=== PATIENT | female | born 1955 | race American Indian/Alaskan Native ===

== ENCOUNTER 2018-02-28 08:11 | Emergency (ER) | payer OTHER ==
--- NOTE | 2018-02-28 10:06 | Cat Scan Report ---
CT scan of facial bones: History: Fall, abrasion, hematoma to face. Findings: The frontal maxillary ethmoid and sphenoid sinuses are well pneumatized and appears unremarkable. There is mucosal thickening noted in the right ethmoid sinuses. No fracture is seen. The bulb and retrobulbar area appears unremarkable. The zygomatic arches and facial bones appears normal. Impression: No evidence of acute fracture.
[2018-02-28] MEDS ORDERED: BOOSTRIX IM ONE (12:04)
--- NOTE | 2018-02-28 12:08 | Emergency Department Report ---
HPI - General Chief Complaint: Fall Time Seen by Provider: 02/28/18 11:24 - HPI HPI: 62-year-old female presents to the emergency department, driving herself and to be seen, after she had a mechanical fall this morning while trying to get into her car. She says that she has bad knees and thinks that she tripped on something. She did fall and hit her face and head but denies any loss of consciousness. She was able to get herself back up and into the car and drove herself in to be seen. She has a history of non-insulin- dependent diabetes and hypertension. She has swelling to the upper lip, and swelling to the lower mid forehead. She has some pain around the upper teeth but denies any obvious missing tooth or fracture. She did not take anything for her symptoms prior to presentation. ED Past Medical Hx - Past Medical History Previous Medical History?: Yes Hx Hypertension: Yes Hx Diabetes: Yes Hx of Cancer: Yes (breast CA) Additional medical history: hypothyroidism - Surgical History Past Surgical History?: Yes Additional Surgical History: removal of cyct from left breast. hysterectomy - Social History Smoking Status: Former Smoker Substance Use Type: Marijuana ED Review of Systems ROS: Stated complaint: FELL/NOSE/ MOUTH PAIN SWELLING Other details as noted in HPI Comment: All other systems reviewed and negative Constitutional: denies: chills, fever Eyes: denies: eye pain, eye discharge, vision change ENT: dental pain. denies: throat pain Respiratory: denies: cough, shortness of breath, wheezing Cardiovascular: denies: chest pain, palpitations Gastrointestinal: denies: abdominal pain, nausea, diarrhea Genitourinary: denies: urgency, dysuria, discharge Musculoskeletal: denies: back pain, joint swelling, arthralgia Skin: other (forehead and lip swelling, abrasions). denies: pruritus Neurological: headache. denies: numbness Physical Exam - Physical Exam Vital Signs: Vital Signs 02/28/18 08:30 Temperature 98.4 F Pulse Rate 61 Respiratory 20 Rate Blood Pressure 189/82 O2 Sat by Pulse 98 Oximetry Physical Exam: GENERAL: The patient is well-developed well-nourished. HENT: Normocephalic. Patient has moist mucous membranes. EYES: Extraocular motions are intact. Pupils equal reactive to light bilaterally. NECK: Supple. Trachea is midline. CHEST/LUNGS: Clear to auscultation. There is no respiratory distress noted. HEART/CARDIOVASCULAR: Regular. There is no tachycardia. There is no murmur. ABDOMEN: Abdomen is soft, nontender. Patient has normal bowel sounds. There is no abdominal distention. SKIN: Skin is warm and dry. Patient has a [id number] sized non- expanding hematoma to the midline inferior forehead. Patient has some swelling to the upper lip. There is a small midline upper lip abrasion as well as one to the philtrum. NEURO: The patient is awake, alert, and oriented. The patient is cooperative. The patient has no focal neurologic deficits. The patient has normal speech. Cranial nerves II through XII grossly intact. MUSCULOSKELETAL: There is no tenderness or deformity. There is no limitation range of motion. There is no evidence of acute injury. ED Course Vital Signs 02/28/18 08:30 Temperature 98.4 F Pulse Rate 61 Respiratory 20 Rate Blood Pressure 189/82 O2 Sat by Pulse 98 Oximetry ED Medical Decision Making - Radiology Data Radiology results: report reviewed CT scan of facial bones: History: Fall, abrasion, hematoma to face. Findings: The frontal maxillary ethmoid and sphenoid sinuses are well pneumatized and appears unremarkable. There is mucosal thickening noted in the right ethmoid sinuses. No fracture is seen. The bulb and retrobulbar area appears unremarkable. The zygomatic arches and facial bones appears normal. Impression: No evidence of acute fracture. Transcribed By: LUIS Dictated By: JOSE ALBERTO AGUDELO MD Electronically Authenticated By: JOSE ALBERTO AGUDELO MD Signed Date/Time: 02/28/[address] scan of head without IV contrast: History: Fall abrasion, and coma. Findings: Ventricles are normal in size and midline in location. No evidence of acute ischemia, hemorrhage or mass. No extra axial fluid collection. Normal brainstem and cerebellum. Impression: No acute intracranial abnormality. Transcribed By: PTP Dictated By: JOSE ALBERTO AGUDELO MD Electronically Authenticated By: JOSE ALBERTO AGUDELO MD Signed Date/Time: 02/28/18 1229 - Medical Decision Making Patient presents after having a mechanical fall and going down and hitting her head and face. There is no dental trauma. She has some swelling to the forehead and upper lip as well as some abrasions. CT scan of the head and facial bones did not show any fracture, dislocation, brain bleed or any other acute process. Vital signs stable. She had some elevated blood pressure but came down to a more reasonable level prior to discharge. She has good follow- up with primary care. She will return to the ER with any worsening of her symptoms or any acute distress. - Differential Diagnosis hematoma, contusion, brain bleed, skull fracture, facial fracture Critical Care Time: No Critical care attestation.: If time is entered above; I have spent that time in minutes in the direct care of this critically ill patient, excluding procedure time. ED Disposition Clinical Impression: Traumatic hematoma of forehead Qualifiers: Encounter type: initial encounter Qualified Code(s): S00.83XA - Contusion of other part of head, initial encounter Facial contusion Qualifiers: Encounter type: initial encounter Qualified Code(s): S00.83XA - Contusion of other part of head, initial encounter Fall Qualifiers: Encounter type: initial encounter Qualified Code(s): W19.XXXA - Unspecified fall, initial encounter Facial abrasion Qualifiers: Encounter type: initial encounter Qualified Code(s): S00.81XA - Abrasion of other part of head, initial encounter Disposition: DC- TO HOME OR SELFCARE Is pt being admited?: No Condition: Stable Instructions: Contusion in Adults (ED), Abrasion (ED), Fall Prevention (ED) Additional Instructions: Please follow-up with your primary care physician as soon as possible. Clean the abrasions with soap and water and then keep them dry. You will need to be seen sooner with any development of surrounding redness, discharge or pus, or any signs or symptoms of infection. You can use ice to the lip and forehead, but not directly against the skin, to help with swelling. Referrals: PRIMARY CARE, [Primary Care Provider] - [facility] Time of Disposition: 13:10
--- NOTE | 2018-02-28 12:53 | Cat Scan Report ---
CT scan of head without IV contrast: History: Fall abrasion, and coma. Findings: Ventricles are normal in size and midline in location. No evidence of acute ischemia, hemorrhage or mass. No extra axial fluid collection. Normal brainstem and cerebellum. Impression: No acute intracranial abnormality.
[2018-02-28 13:05] VITALS: BP 152/98
== END 2018-02-28 13:24 | disposition home or self-care (01) ==
LOC: ED 08:11
DX: S00.83XA Contusion of other part of head, initial encounter (principal); I10 Essential (primary) hypertension; F12.10 Cannabis abuse, uncomplicated; E11.9 Type 2 diabetes mellitus without complications; E03.9 Hypothyroidism, unspecified; Z85.3 Personal history of malignant neoplasm of breast; Z90.710 Acquired absence of both cervix and uterus; Z87.891 Personal history of nicotine dependence
CPT/HCPCS: 70450; 70486; 82962; 90471; 90715